=== PATIENT | male | born 1980 | race Caucasian/White ===

== ENCOUNTER 2017-11-20 10:37 | Outpatient (CLI) | payer OTHER ==
[2017-11-20 18:05] LABS: BASOPHILS % (AUTO) 0.8 %; EOSINOPHILS # (AUTO) 0.1 10^3/uL (0.0-0.7); EOSINOPHILS % (AUTO) 2.2 %; HGB - HEMOGLOBIN 16.1 g/dL (14.0-18.0); LYMPHOCYTES # (AUTO) 1.6 10^3/uL (1.5-3.5); LYMPHOCYTES % (AUTO) 30.3 %; MEAN CORPUSCULAR VOLUME 85.9 fL (80.0-94.0); MEAN PLATELET VOLUME 7.6 fL (7.4-11.4); MONOCYTES # (AUTO) 0.3 10^3/uL (0.0-1.0); MONOCYTES % (AUTO) 5.2 %; NEUTROPHILS # (AUTO) 3.3 10^3/uL (1.5-6.6); NEUTROPHILS % (AUTO) 61.5 %; PLT - PLATELET COUNT 256 10^3/uL (130-450); RED BLOOD COUNT 5.36 10^6/uL (4.70-6.10); RED CELL DISTRIBUTION WIDTH 12.8 % (12.0-15.0); WHITE BLOOD COUNT 5.3 x10^3/uL (4.8-10.8)
[2017-11-20 20:03] LABS: ALBUMIN 4.8 g/dL (3.2-5.5); ALBUMIN/GLOBULIN RATIO 1.7 (1.0-2.2); BILIRUBIN,TOTAL 1.2 mg/dL (0.2-1.0); CALCIUM 9.7 mg/dL (8.5-10.3); CREATININE 0.9 mg/dL (0.6-1.2); TOTAL PROTEIN 7.6 g/dL (6.7-8.2)
[2017-11-20 20:24] LABS: BILIRUBIN,DIRECT 0.2 mg/dL (0.1-0.5)
[2017-11-21 11:58] LABS: HEPATITIS B CORE AB TOTAL NON-REACTIVE (NON-REACTIVE)
[2017-11-22 13:47] LABS: ANA SCREEN NEGATIVE (NEGATIVE)
[2017-11-24 15:26] LABS: CERULOPLASMIN 24 mg/dL (18-36)
== END 2017-11-20 10:38 | disposition home or self-care (01) ==
LOC: LAB.F 10:37
PROVIDERS: ATTEND Internal Medicine
DX: R94.5 Abnormal results of liver function studies (principal)
CPT/HCPCS: 36415; 80053; 80076; 82248; 82390; 83540; 84466; 85025; 86038; 86317; 86704

== ENCOUNTER 2017-11-22 15:08 | Outpatient (CLI) | payer OTHER ==
--- NOTE | 2017-11-22 17:55 | Ultrasound Report ---
Procedure Date: 11/22/2017 Accession Number: [id number] / [id number] Procedure: US - Abdomen Limited CPT Code: FULL RESULT: EXAM: ABDOMEN ULTRASOUND LIMITED, RUQ EXAM DATE: 11/22/2017 05:28 PM. CLINICAL HISTORY: ABNORMAL LIVER ENZYMES. COMPARISON: None. TECHNIQUE: Real-time scanning was performed with static images obtained. FINDINGS: Liver: Normal echotexture.There is a 10 x 9 x 7 mm hyperechoic lesion in the right hepatic lobe, ultimately indeterminate but suggestive of hemangioma. Liver measures 14.9 cm craniocaudally. Main portal vein flow: Hepatopetal. Gallbladder: Gallbladder wall thickness is normal.No gallstones.Sonographic White sign is absent, per technologist's notes. Biliary System: Common bile duct measures 2.4 mm. No intrahepatic ductal dilatation. Pancreas: Visualized portion is unremarkable. Right Kidney: 10.6 cm longitudinally. Normal echotexture.No hydronephrosis.No contour-deforming mass.No calculus. Other: IMPRESSION: 1. No cholelithiasis or supporting ultrasound evidence of acute cholecystitis. Common bile duct is normal caliber. 2. Hyperechoic 10 mm right hepatic lobe lesion, ultimately indeterminate but suggestive of hemangioma. Liver mass protocol CT/MR could be performed for confirmation. [facility]
== END 2017-11-22 15:09 | disposition home or self-care (01) ==
LOC: DI 15:08
PROVIDERS: ATTEND Internal Medicine
DX: R94.5 Abnormal results of liver function studies (principal); K76.9 Liver disease, unspecified
CPT/HCPCS: 76705

== ENCOUNTER 2017-11-30 07:11 | Outpatient (CLI) | payer OTHER ==
[2017-11-30] MEDS ORDERED: IOPAMIDOL-300 100 ML VIAL ONE (07:23)
[2017-11-30] MEDS ORDERED: IOPAMIDOL-300 100 ML VIAL IVP ONE (10:44)
--- NOTE | 2017-11-30 12:38 | CT Report ---
Procedure Date: 11/30/2017 Accession Number: [id number] / [id number] Procedure: CT - Abdomen W/ CPT Code: FULL RESULT: EXAM: CT ABDOMEN EXAM DATE: 11/30/2017 08:18 AM. CLINICAL HISTORY: Findings suspicious for hemangioma on recent limited abdomen ultrasound COMPARISON: Abdomen ultrasound 11/22/2017. TECHNIQUE: Routine helical CT imaging was performed through the abdomen. IV contrast: ISOVUE 300 100mL Enteric contrast: No. Reconstruction: Coronal and sagittal. In accordance with CT protocol optimization, one or more of the following dose reduction techniques were utilized for this exam: automated exposure control, adjustment of mA and/or KV based on patient size, or use of iterative reconstructive technique. FINDINGS: Lung Bases: Unremarkable. Liver: Small hemangioma series 4 image 18 posterior right lobe 9 mm seen on portal venous phase with complete filling on 7 minute delayed imaging accounting for the finding previously seen by ultrasound. No other masses. Gallbladder/Bile Ducts: Unremarkable. Spleen: Normal. Pancreas: Normal. Adrenal Glands: Normal. Kidneys: Normal. No masses or hydronephrosis. Peritoneal Cavity/Bowel: Normal. No free fluid, free air or adenopathy. No masses or acute inflammatory process. 4 vasculature: No aneurysms or other significant abnormality. Bones: No significant abnormality. Other: None. IMPRESSION: 9 mm posterior right lobe hemangioma accounts for the finding seen on 11/22/[address] [facility]
== END 2017-11-30 07:12 | disposition home or self-care (01) ==
LOC: DI 07:11
PROVIDERS: ATTEND Internal Medicine
DX: D18.03 Hemangioma of intra-abdominal structures (principal)
CPT/HCPCS: 74160; Q9967